=== PATIENT | male | born 1945 | race Caucasian/White ===

== ENCOUNTER 2018-08-12 07:59 | Outpatient (CLI) | payer MEDICARE ==
[~2018-08-12 07:59] MED LIST: ALBU8.5H5 INH; AMLO-150 PO; ASPI81TA59 PO; ATOR-2 PO; BUDE10.2 INH; CARV3.1212 PO; CLOP75TA PO; COMBIVENT; HYDR-3237 PO; LOSA100T14 PO; METF10002 PO; METO-282 PO; NITR0.4T41 SL; REGADENOSON 0.4 MG/5 ML SYRINGE ONE; TICA90TA PO
== END 2018-08-12 23:59 | disposition home or self-care (01) ==
LOC: CFH 07:59
PROVIDERS: ATTEND Internal Medicine Cardiovascular Disease
DX: I25.5 Ischemic cardiomyopathy (principal)
CPT/HCPCS: 78452; 93017; A9502; J2785

== ENCOUNTER 2018-09-03 07:36 | Inpatient (IN) | payer MEDICARE ==
[~2018-09-03] VITALS: Ht 167.6 cm; Wt 94.0 kg
[~2018-09-03 07:36] MED LIST changes: -REGADENOSON 0.4 MG/5 ML SYRINGE ONE
--- NOTE | 2018-09-03 07:58 | NUR ---
PT BIB [facility] AFTER WAKING UP FEELING SOB AND GASPING WHILE WALKING. [facility] STATED PT'S RA SAT WAS 92% UPON ARRIVAL. AT THIS TIME, PT COUGHING UP GREEN MUCUS. PT RA SAT 89-92%. PUT ON 2L NC. PT STATES HE HAS NO PAIN AT THIS TIME. PT IS WARM TO THE TOUCH WITH TEMPERATURE OF 99.3. MD TO BEDSIDE TO UPDATE PT ON POC. NADN. VSS. CALL LIGHT IN REACH. PT RESTING ON GURNEY.
[2018-09-03] MEDS ORDERED: CEFTRIAXONE PMX 1GM/50ML 50 ML ONE (08:46)
--- NOTE | 2018-09-03 08:52 | NUR ---
PT MEDICATED PER [facility]. LAB AT BEDSIDE TO REDRAW BLOOD. BC HAVE BEEN DRAWN. LACTATE BEING REDRAWN. PT RESTING IN BED. NADN. CALL LIGHT IN REACH.
[2018-09-03 08:58] LABS: BASOPHILS # (AUTO) 0.01 x10^3/uL (0-0.1); BASOPHILS % (AUTO) 0 % (0-1); EOSINOPHILS # (AUTO) 0.04 x10^3/uL (0-0.4); EOSINOPHILS % (AUTO) 0 % (1-7); LYMPHOCYTES # (AUTO) 0.49 x10^3/uL (1-3.4); LYMPHOCYTES % (AUTO) 5 % (22-44); MD NO; MEAN CORPUSCULAR HGB CONC 32.9 g/dL (33.2-36.2); MEAN CORPUSCULAR VOLUME 94.3 fL (81-97); MEAN PLATELET VOLUME 6.4 fL (7.4-10.4); MONOCYTES # (AUTO) 0.41 x10^3/uL (0.2-0.8); MONOCYTES % (AUTO) 4 % (2-9); NEUTROPHILS # (AUTO) 9.43 x10^3/uL (1.8-6.8); NEUTROPHILS % (AUTO) 91 % (42-75); PLATELET COUNT 191 x10^3/uL (130-400); RED BLOOD COUNT 4.64 x10^6/uL (4.38-5.82); RED CELL DISTRIBUTION WIDTH 13.7 % (9.4-14.8)
[2018-09-03] MEDS ORDERED: AZITHROMYCIN 500 MG in SODIUM CHLORIDE 0.9% 250 ML IV ONE (09:00)
[2018-09-03] MEDS ORDERED: CEFTRIAXONE PMX 1GM/50ML 50 ML IV ONE (09:00)
[2018-09-03 09:03] LABS: ALANINE AMINOTRANSFERASE 17 U/L (12-78); ALBUMIN 3.9 g/dL (3.4-5.0); ANION GAP 5 mmol/L (5-15); CALCIUM 8.7 mg/dL (8.5-10.1); CHLORIDE 105 mmol/L (98-107)
[2018-09-03 09:07] LABS: ALKALINE PHOSPHATASE 42 U/L (45-117); BILIRUBIN,TOTAL 0.8 mg/dL (0.2-1.0); TOTAL PROTEIN 7.5 g/dL (6.4-8.2); TROPONIN I < 0.015 ng/mL (0.000-0.045)
--- NOTE | 2018-09-03 10:00 | NUR ---
PT RESTING ON GUDELANO. DENIES NEEDS. NADN. VSS. CALL LIGHT IN REACH.
--- NOTE | 2018-09-03 10:20 | NUR ---
REPORT GIVEN TO TAMMY STRATTON ON MEDICAL.
[2018-09-03 10:49] VITALS: BP 121/68
[2018-09-03] MEDS ORDERED: ALBUTEROL/IPRATROPIUM 2.5MG/0.5MG, 3 ML NPPB PRN (12:00)
[2018-09-03] MEDS ORDERED: ENALAPRILAT 1.25 MG/ML, 2ML IVPush PRN (12:00)
[2018-09-03] MEDS ORDERED: SODIUM CHLORIDE 0.9% 1,000 ML IV SCH (12:00)
[2018-09-03] MEDS ORDERED: BISACODYL 10 MG SUPP PR PRN (12:00)
[2018-09-03] MEDS ORDERED: ONDANSETRON ODT 4 MG PO PRN (12:00)
[2018-09-03] MEDS ORDERED: POLYETHYLENE GLYCOL 17 GM PACKET PO PRN (12:00)
[2018-09-03] MEDS ORDERED: ACETAMINOPHEN 325 MG TABLET PO PRN (12:00)
[2018-09-03] MEDS ORDERED: LABETALOL 5MG/ML, 20ML IVPush PRN (12:00)
[2018-09-03] MEDS ORDERED: DEXTROSE 50%, 50ML SYRINGE IVPush PRN (12:00)
[2018-09-03] MEDS ORDERED: DEXTROSE 4 GM TAB.CHEW PO PRN (12:00)
[2018-09-03] MEDS ORDERED: GLUCAGON 1 MG IM PRN (12:00)
[2018-09-03] MEDS ORDERED: ONDANSETRON 2MG/ML, 2ML IVPush PRN (12:00)
[2018-09-03] MEDS ORDERED: NITROGLYCERIN SINGLE TAB 0.4 MG SL PRN (12:00)
[2018-09-03] MEDS ORDERED: DOCUSATE 100 MG CAPSULE PO PRN (12:00)
[2018-09-03] MEDS: ENOXAPARIN 40 MG/0.4 ML SQ SCH (12:28)
[2018-09-03] MEDS: HYDROcodone/APAP 5/325 TABLET PO PRN ×3 (13:29→21:05)
[2018-09-03 13:39] VITALS: BP 120/71
[2018-09-03 13:56] VITALS: BP 121/68
[2018-09-03] MEDS: INSULIN LISPRO 100 UNITS/ML, PEN SQ-INSULIN SCH ×2 (16:00→21:00)
[2018-09-03] MEDS ORDERED: metFORMIN 500 MG TABLET PO SCH (17:00)
[2018-09-03] MEDS ORDERED: OMNIPAQUE 350 MG/ML, 100ML BOTTLE ONE (17:39)
[2018-09-03 19:51] VITALS: BP 119/72
[2018-09-03] MEDS: ATORVASTATIN 80 MG TABLET PO SCH (20:57)
[2018-09-03] MEDS: CARVEDILOL 6.25 MG TABLET PO SCH (20:57)
[2018-09-03] MEDS: SODIUM CHLORIDE FLUSH 10ML SYR IVF SCH (20:57)
[2018-09-04 00:49] VITALS: BP 119/70
[2018-09-04] MEDS ORDERED: metFORMIN 500 MG TABLET PO SCH (05:13)
[2018-09-04 06:12] LABS: ANION GAP 6 mmol/L (5-15); CALCIUM 8.3 mg/dL (8.5-10.1); CHLORIDE 107 mmol/L (98-107); CREATININE 1.05 mg/dL (0.7-1.3)
[2018-09-04 06:25] LABS: BASOPHILS # (AUTO) 0.13 x10^3/uL (0-0.1); BASOPHILS % (AUTO) 1 % (0-1); EOSINOPHILS % (AUTO) 0 % (1-7); LYMPHOCYTES # (AUTO) 1.13 x10^3/uL (1-3.4); LYMPHOCYTES % (AUTO) 9 % (22-44); MD NO; MEAN CORPUSCULAR HEMOGLOBIN 30.6 pg (27.5-34.5); MEAN CORPUSCULAR HGB CONC 32.4 g/dL (33.2-36.2); MEAN CORPUSCULAR VOLUME 94.7 fL (81-97); MEAN PLATELET VOLUME 6.5 fL (7.4-10.4); MONOCYTES # (AUTO) 0.79 x10^3/uL (0.2-0.8); MONOCYTES % (AUTO) 6 % (2-9); NEUTROPHILS # (AUTO) 10.82 x10^3/uL (1.8-6.8); NEUTROPHILS % (AUTO) 84 % (42-75); PLATELET COUNT 198 x10^3/uL (130-400); RED BLOOD COUNT 4.01 x10^6/uL (4.38-5.82); RED CELL DISTRIBUTION WIDTH 14.1 % (9.4-14.8)
[2018-09-04] MEDS: INSULIN LISPRO 100 UNITS/ML, PEN SQ-INSULIN SCH ×4 (07:00→20:33)
[2018-09-04 07:33] VITALS: BP 129/70
[2018-09-04] MEDS: LOSARTAN 50MG TABLET PO SCH (08:08)
[2018-09-04] MEDS: CARVEDILOL 6.25 MG TABLET PO SCH ×2 (08:08→20:33)
[2018-09-04] MEDS: ASPIRIN 81 MG TABLET CHEW PO SCH (08:08)
[2018-09-04] MEDS: SODIUM CHLORIDE FLUSH 10ML SYR IVF SCH ×2 (08:09→20:33)
[2018-09-04] MEDS: CLOPIDOGREL 75 MG TABLET PO SCH (08:09)
[2018-09-04] MEDS: HYDROcodone/APAP 5/325 TABLET PO PRN ×3 (08:18→20:33)
[2018-09-04] MEDS: CEFTRIAXONE PMX 1GM/50ML 50 ML IV SCH (11:26)
[2018-09-04] MEDS: ENOXAPARIN 40 MG/0.4 ML SQ SCH (12:45)
[2018-09-04] MEDS: AZITHROMYCIN 500 MG in SODIUM CHLORIDE 0.9% 250 ML IV SCH (12:45)
[2018-09-04 13:30] VITALS: BP 132/72
[2018-09-04] MEDS: ATORVASTATIN 80 MG TABLET PO SCH (20:33)
[2018-09-04 21:35] VITALS: BP 137/77
[2018-09-05 01:51] VITALS: BP 146/83
[2018-09-05] MEDS: HYDROcodone/APAP 5/325 TABLET PO PRN (06:22)
[2018-09-05] MEDS: INSULIN LISPRO 100 UNITS/ML, PEN SQ-INSULIN SCH (07:00)
[2018-09-05 07:15] VITALS: BP 143/71
[2018-09-05] MEDS ORDERED: GUAI600T31 PO (08:05)
[2018-09-05] MEDS ORDERED: CEFD300C37 PO (08:05)
[2018-09-05] MEDS ORDERED: METH4TAB2 PO (08:05)
[2018-09-05] MEDS ORDERED: CARV6.2512 PO (08:05)
[2018-09-05] MEDS: LOSARTAN 50MG TABLET PO SCH (08:07)
[2018-09-05] MEDS: CARVEDILOL 6.25 MG TABLET PO SCH (08:07)
[2018-09-05] MEDS: ASPIRIN 81 MG TABLET CHEW PO SCH (08:08)
[2018-09-05] MEDS: SODIUM CHLORIDE FLUSH 10ML SYR IVF SCH (08:08)
[2018-09-05] MEDS: CLOPIDOGREL 75 MG TABLET PO SCH (08:09)
[2018-09-05] MEDS ORDERED: GUAIFENESIN ER 600 MG TABLET PO SCH (09:00)
[2018-09-05] MEDS: AZITHROMYCIN 500 MG in SODIUM CHLORIDE 0.9% 250 ML IV SCH (09:24)
[2018-09-05] MEDS: CEFTRIAXONE PMX 1GM/50ML 50 ML IV SCH (11:00)
== END 2018-09-05 11:25 | disposition home or self-care (01) | DRG 871 ==
LOC: ED 08:03 → 3NE 09:50 → DCLOUNGE 09-05 11:17
PROVIDERS: ADMIT Internal Medicine; ATTEND Internal Medicine
DX: A41.9 Sepsis, unspecified organism (principal); J15.9 Unspecified bacterial pneumonia; J96.01 Acute respiratory failure with hypoxia; J44.1 Chronic obstructive pulmonary disease with (acute) exacerbation; E87.2 Acidosis; J98.11 Atelectasis; J44.0 Chronic obstructive pulmonary disease with (acute) lower respiratory infection; E11.40 Type 2 diabetes mellitus with diabetic neuropathy, unspecified; E78.5 Hyperlipidemia, unspecified; Z96.653 Presence of artificial knee joint, bilateral; G89.29 Other chronic pain; K76.0 Fatty (change of) liver, not elsewhere classified; I10 Essential (primary) hypertension; I25.10 Atherosclerotic heart disease of native coronary artery without angina pectoris; I25.2 Old myocardial infarction; Z80.1 Family history of malignant neoplasm of trachea, bronchus and lung; Z82.3 Family history of stroke; Z87.891 Personal history of nicotine dependence; Z95.1 Presence of aortocoronary bypass graft; Z95.5 Presence of coronary angioplasty implant and graft; Z88.8 Allergy status to other drugs, medicaments and biological substances; Z79.899 Other long term (current) drug therapy; Z79.51 Long term (current) use of inhaled steroids; Z79.84 Long term (current) use of oral hypoglycemic drugs
CPT/HCPCS: 36415; 71045; 71275; 80048; 80053; 82962; 83605; 83880; 84145; 84484; 85025; 85379; 87040; 87070; 87205; 93005; 96365; 96375; 99285; G0378; J0456; J0696; J1650; Q9967; J1815; J7030; J7050; J7512